=== PATIENT | male | born 1980 | race Caucasian/White ===

== ENCOUNTER → 2016-10-13 | Outpatient (CLI) | payer OTHER ==
[~2016-10-13] MED LIST: PANT20TA PO; VITA100L PO; VITA100T20 PO
--- NOTE | 2016-10-13 18:39 | REP ---
MR BRAIN WITHOUT CONTRAST: HISTORY: Cerebral cyst. COMPARISON: 05/27/2015. Several punctate areas of increased signal intensity on T2 weighted images are present in the subcortical white matter. There is no intraparenchymal hemorrhage, infarct, mass or midline shift. A 4 mm pineal cyst is present. The ventricular system is normal in appearance. There is no extracerebral collection. The visualized sinuses are clear. IMPRESSION: There are several punctate area of increased signal intensity in the subcortical white matter. This is a nonspecific finding. Signed by Miguel Ramos MD 10/16/2016 08:35 A
== END ==
LOC: M RAD 13:22
PROVIDERS: ATTEND Psychiatry & Neurology Neurology
DX: G93.0 Cerebral cysts (principal)

== ENCOUNTER 2016-10-19 13:45 | Outpatient (RCR) | payer OTHER | END 2016-10-24 | LOC: M PT 13:45 | PROVIDERS: ATTEND Physician Assistant | DX: Z51.89 Encounter for other specified aftercare (principal); M54.5 Low back pain ==

== ENCOUNTER → 2016-12-19 | Outpatient (REF) | payer SELFPAY ==
[2016-12-19 16:15] LABS: ALBUMIN 3.8 GM/DL (3.2-5.2); ALBUMIN/GLOBULIN RATIO 0.97 (1.00-1.93); ALKALINE PHOSPHATASE 96 U/L (45-117); ALT/SGPT 46 U/L (12-78); ANION GAP 10 MEQ/L (8-16); AST/SGOT 23 U/L (15-37); BILIRUBIN,TOTAL 0.3 MG/DL (0.2-1.0); BLOOD UREA NITROGEN 16 MG/DL (7-18); CALCIUM LEVEL 9.6 MG/DL (8.5-10.1); CARBON DIOXIDE LEVEL 25 MEQ/L (21-32); CHLORIDE LEVEL 104 MEQ/L (98-107); CHOLESTEROL LEVEL 221 MG/DL (<200); CREATININE FOR GFR 1.06 MG/DL (0.70-1.30); GLOMERULAR FILTRATION RATE > 60.0 (>60); GLUCOSE, FASTING 106 MG/DL (70-105); POTASSIUM SERUM 4.5 MEQ/L (3.5-5.1); SODIUM LEVEL 139 MEQ/L (136-145); TOTAL PROTEIN 7.7 GM/DL (6.4-8.2); TRIGLYCERIDES LEVEL 300 MG/DL (<150)
== END ==
LOC: M SFHCPLAZ 13:00
PROVIDERS: ATTEND Physician Assistant
DX: K21.9 Gastro-esophageal reflux disease without esophagitis (principal); E78.4 Other hyperlipidemia

== ENCOUNTER 2017-06-17 06:26 | Emergency (ER) | payer OTHER, SELFPAY ==
[~2017-06-17] VITALS: Ht 180.3 cm; Wt 103.2 kg
[2017-06-17 06:28] VITALS: BP 162/89
[2017-06-17] MEDS ORDERED: IBUPROFEN 800 MG TAB PO ONE (07:00)
[2017-06-17] MEDS ORDERED: NORCO 5/325MG TABLET (BULK FOR ED) PO ONE (07:00)
--- NOTE | 2017-06-17 13:20 | REP ---
RIGHT ANKLE: Four views of the right ankle are performed. Rounded calcification is seen along the lateral aspect of the calcaneus on one of the oblique views probably representing accessory ossicle or old fracture. There is a smaller somewhat irregular oval calcification along the lateral aspect of the cuboid bone. This could represent a small chip fracture or avulsion fracture. No other acute fracture or dislocation is seen of the visualized osseous structures. Ankle mortise is anatomic. Signed by Epi Ashley MD 06/17/2017 07:13 P
== END 2017-06-17 08:01 | disposition home or self-care (01) ==
LOC: M ED 06:26
DX: S93.401A Sprain of unspecified ligament of right ankle, initial encounter (principal); X50.1XXA Overexertion from prolonged static or awkward postures, initial encounter; Y92.099 Unspecified place in other non-institutional residence as the place of occurrence of the external cause; Y93.89 Activity, other specified; Y99.9 Unspecified external cause status; K21.9 Gastro-esophageal reflux disease without esophagitis; F17.200 Nicotine dependence, unspecified, uncomplicated; Z79.899 Other long term (current) drug therapy

== ENCOUNTER → 2017-11-20 | Outpatient (CLI) | payer OTHER | LOC: M RAD 05:51 | DX: R04.2 Hemoptysis (principal) | CPT/HCPCS: 71046 ==

== ENCOUNTER 2019-05-20 15:32 | Inpatient (IN) | payer MEDICAID, OTHER ==
[~2019-05-20] VITALS: Ht 180.3 cm; Wt 94.2 kg
[~2019-05-20 15:32] MED LIST changes: -PANT20TA PO; +PANT20TA2 PO; -VITA100T20 PO; +VITA100T51 PO
[2019-05-20] MEDS ORDERED: HALOPERIDOL 5 MG/ML VIAL (J1630) IM STA (15:37)
[2019-05-20] MEDS ORDERED: LORazepam 2 MG/ML VIAL (J2060) IM STA (15:37)
[2019-05-20] MEDS ORDERED: diphenhydrAMINE INJ 50MG/ML VIAL (J1200) IM STA (15:37)
[2019-05-20] MEDS ORDERED: diphenhydrAMINE INJ 50MG/ML VIAL (J1200) As Ordered ONE (15:38)
[2019-05-20 16:22] LABS: HEMATOCRIT 41.3 % (42.0-52.0); HEMOGLOBIN 13.9 g/dl (13.5-17.5); MEAN CORPUSCULAR HEMOGLOBIN 30.3 pg (27.0-33.0); MEAN CORPUSCULAR HGB CONC 33.7 g/dl (32.0-36.5); MEAN CORPUSCULAR VOLUME 90.2 fl (80.0-96.0); PLATELET COUNT, AUTOMATED 193 10^3/uL (150-450); RED BLOOD COUNT 4.58 10^6/uL (4.30-6.10); WHITE BLOOD COUNT 6.8 10^3/uL (4.0-10.0)
[2019-05-20 16:48] LABS: AMPHETAMINES LEVEL URINE NEGATIVE (NEGATIVE); BARBITURATES URINE NEGATIVE (NEGATIVE); BENZODIAZEPINES URINE NEGATIVE (NEGATIVE); CANNABINOIDS URINE POSITIVE (NEGATIVE); COCAINE METABOLITE URINE NEGATIVE (NEGATIVE); METHADONE URINE NEGATIVE (NEGATIVE); OPIATES URINE NEGATIVE (NEGATIVE); PHENCYCLIDINE URINE NEGATIVE (NEGATIVE)
[2019-05-20 16:51] LABS: ACETAMINOPHEN LEVEL < 2.0 UG/ML (10.0-30.0); ALBUMIN 3.7 GM/DL (3.2-5.2); ALT/SGPT 30 U/L (12-78); BILIRUBIN,DIRECT 0.2 MG/DL (0.0-0.2); BILIRUBIN,TOTAL 0.5 MG/DL (0.2-1.0); BLOOD UREA NITROGEN 12 MG/DL (7-18); CARBON DIOXIDE LEVEL 21 MEQ/L (21-32); CHLORIDE LEVEL 104 MEQ/L (98-107); CPK CREATINE PHOSPHOKINASE 303 U/L (39-308); CREATININE FOR GFR 1.26 MG/DL (0.70-1.30); ETHYL ALCOHOL (ETHANOL) < 0.003 % (0.000-0.010); GLOMERULAR FILTRATION RATE > 60.0 (>60); GLUCOSE, FASTING 96 MG/DL (70-100); POTASSIUM SERUM 3.5 MEQ/L (3.5-5.1); SODIUM LEVEL 139 MEQ/L (136-145); THYROID STIMULATING HORMONE 0.323 uIU/ML (0.358-3.740); TOTAL PROTEIN 7.4 GM/DL (6.4-8.2)
[2019-05-21] MEDS ORDERED: diphenhydrAMINE INJ 50MG/ML VIAL (J1200) As Ordered ONE (12:14)
[2019-05-21] MEDS ORDERED: diphenhydrAMINE INJ 50MG/ML VIAL (J1200) IM ONE (12:15)
[2019-05-21] MEDS ORDERED: LORazepam 2 MG/ML VIAL (J2060) IM ONE (12:15)
[2019-05-21] MEDS ORDERED: HALOPERIDOL 5 MG/ML VIAL (J1630) IM ONE (12:15)
[2019-05-21] MEDS ORDERED: LORazepam 2 MG/ML VIAL (J2060) As Ordered ONE (12:15)
[2019-05-21] MEDS ORDERED: IBUPROFEN 400 MG TAB PO PRN (14:30)
[2019-05-21] MEDS ORDERED: MOM 30ML SUSPENSION UDC PO PRN (14:30)
[2019-05-21] MEDS ORDERED: traZODone 50 MG TAB PO PRN (14:30)
[2019-05-21] MEDS: MAALOX 30 ML SUSP *UDC PO PRN (18:31)
[2019-05-21] MEDS: NICOTINE 21MG/24HR 1 EA TRANSDERMAL TD SCH (18:31)
[2019-05-22 06:47] VITALS: BP 102/53
--- NOTE | 2019-05-22 09:11 | MHHPEPDOC ---
[facility] History & Physical History and Physical DATE OF ADMISSION: May 21, 2019 at 14:20 Date of Service: 05/22/2019 Chief Complaint "I have to go" History of Present Illness Patient a 39-year-old man who recently was released from correction presents in a psychotic and disrupted state. He had been brought in to [facility] under the conditions of a pickup order issued at the request of his mother. Patient's mother reported that he had been acting bizarre since being released 10 days from correction. He was restrained in the ER due to agitation. I attempted to meet with the patient, however, he was too distorted and psychotic to carry on any meaningful conversation. The majority of the information below is extracted from the chart. On presentation, he had been noted to have no outpatient treatment and had been reporting that he needed to go because "birds". He has made multiple attempts to leave the . Review Of Systems Unable to get full review of systems due to patient's psychosis. Past Psychiatric History No history of outpatient treatment. No mental health admissions. No previous diagnoses known. On no current psychiatric medicines. Allergies Please see below. Family Psychiatric History Unknown due to patient's psychosis. Social History The patient recently left correction. The patient lives in the current areas but has left correction 10 days ago for unknown causes. He likely lives in the local area as it appears that he is follows with the [facility] office for family care. Substance Abuse History The patient denies any substance use. Toxicology on presentation indicated positive cannabinoids, no alcohol. Medical History History of back pain per chart. Mental Status Examination General: Poor hygiene Speech: Pressured Thought processes: Tangential MSK: Pacing Thought content: Bizarre and confused Abstract reasoning, and computation: Impaired Description of associations: Loose Description of abnormal or psychotic thoughts: Denies any suicidal or homicidal ideation, appears to be responding to internal stimuli. Judgment: poor Insight: poor Orientation: Alert and orientated 3 Cognition: Grossly normal Recent and remote memory: Impaired Attention span and concentration: Impaired Fund of knowledge: Poor Mood: "fine" Affect: flat with no reactivity Diagnoses Unspecified psychosis. Cannabis use disorder, unspecified. Assessment and Plan Ixemd-[id number]-old man with no history of psychosis or patient admissions presents in a psychotic state 10 days after leaving the correction. It's not clear if he has a intoxication with a synthetic cannabinoid or other agent that could cause him to become psychotic. He has flatly refused any medications. However, he appears fairly confused and psychotic and has attempted to leave multiple times. Disposition Will need at least 2 midnights or more in order to treat his psychotic symptoms. Problem List 1. Altered thoughts. 2. Substance use. Initial Treatment Plan 1. Patient was admitted on a 9.39 legal status. 2. Complete history was obtained. 3. With patients permission, family will be contacted and database will be expanded. 4. Patients medication regimen will be reviewed and changed accordingly. 5. Patient will be provided with protected environment. 6. Patient will be treated with individual, group, and milieu therapies. 7. Patient will receive supportive psych-education. 8. Discharge planning will commence immediately. 9. Outpatient follow-up treatment will be strongly recommended. 10. The initial treatment plan will focus initially on observation then starting of medication. Estimated Length Of Stay Five days. Time Spent 30 minutes with greater than 50% of time on coordination of care. Vital Signs Vital Signs Date Time Temp Pulse Resp B/P (MAP) Pulse Ox O2 Delivery O2 Flow Rate FiO2 05/22/19 06:47 98.2 68 16 102/53 (69) 05/21/19 14:52 98 05/21/19 14:00 Room Air Medications No Active Prescriptions or Reported Meds Allergies Coded Allergies: No Known Allergies (Unverified , 05/20/19) SIMA HALEY DO May 22, 2019 09:11
[2019-05-22] MEDS: NICOTINE 21MG/24HR 1 EA TRANSDERMAL TD SCH (13:29)
[2019-05-22] MEDS: MAALOX 30 ML SUSP *UDC PO PRN ×2 (14:48→21:47)
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
[2019-05-22 18:00] VITALS: BP 141/70
--- NOTE | 2019-05-22 20:34 | ECGEPIP ---
[facility] - ED Test Date: 2019-05-20 Pat Name: CARLOS EDUARDO BARROSO Department: Room: - Gender: Male Tobacco Hanger: myrna : 1980 Requested By: BASHIR Ferreira Order Number: [id number] Reading MD: Jessi Hines Measurements Intervals [place] Rate: 52 P: 42 WI: 173 QRS: 34 QRSD: 100 T: 38 QT: 422 QTc: 396 Interpretive Statements SINUS BRADYCARDIA baseline artifact may affect interpretation DECREASED RATE 12/02/14 Electronically Signed on 05-22-2019 20:34:06 EDT by Jessi Hines
[2019-05-23] MEDS: NICOTINE 21MG/24HR 1 EA TRANSDERMAL TD SCH (08:45)
[2019-05-23] MEDS ORDERED: LORazepam 2 MG TAB PO STA (11:30)
[2019-05-23] MEDS ORDERED: diphenhydrAMINE 50 MG CAP PO STA (11:30)
[2019-05-23] MEDS ORDERED: HALOPERIDOL 10 MG TAB PO STA (11:30)
--- NOTE | 2019-05-23 11:38 | MHIPNPDOC ---
[facility] Progress Note Progress Note Date of Service: 05/23/2019 History of Present Illness Patient a 39-year-old man who recently was released from shelter presents in a psychotic and disrupted state. He had been brought in to [facility] under the conditions of a pickup order issued at the request of his mother. Patient's mother reported that he had been acting bizarre since being released 10 days from shelter. He was restrained in the ER due to agitation. I atte mpted to meet with the patient, however, he was too distorted and psychotic to carry on any meaningful conversation. Interval History The patient is attempted to be met with today. However, he's highly agitated, pacing around the unit, becoming agitated, yelling and continues to be bizarre. He reports that if he eats meat loaf that it will be a bad omen of injury to his mother. He remains fairly bizarre. After attempting to meet with him, he states that "You're not a real doctor." He was told that he needs to take medication and not leave. He briefly mentions he had been on Seroquel in the past. When offered Seroquel, he stated that he wished to leave. He did need to be coded as he was going in and out of the other provider's office and in other patient's r ooms. He was placed on a one-to-one due to his sickness which could be really problematic in a volatile milieu. The patient generally had stayed up night and has been only mildly redirectable at times with continued bizarre thoughts. Review Of Systems As above Psychotherapy None on this visit. Vital Signs Reviewed. Mental Status Examination General: Poor hygiene Speech: Pressured Thought processes: Tangential MSK: Pacing Thought content: Bizarre and confused Abstract reasoning, and computation: Impaired Description of associations: Loose Description of abnormal or psychotic thoughts: Appears to be responding to internal stimuli. Judgment: poor Insight: poor Orientation: Alert and orientated 3 Cognition: Grossly normal Recent and remote memory: Impaired Attention span and concentration: Impaired Fund of knowledge: Poor Mood: "fine" Affect: flat with no reactivity Diagnoses Unspecified psychosis. Cannabis use disorder, unspecified. Assessment and Plan The patient would placed on Zyprexa 5 mg BID as he is fairly psychotic and will need to be stabilized quickly. One-to-one sitter as the patient is intrusive and could put himself at risk if he were to encounter a violent patient. Disposition The patient will need a further inpatient admission due to his severe psychosis and inability to care for himself. Time Spent 15 minutes [id number]. Sunday Vital Signs Vital Signs Date Time Temp Pulse Resp B/P (MAP) Pulse Ox O2 Delivery O2 Flow Rate FiO2 05/22/19 18:00 98.8 59 16 141/70 (93) 05/22/19 10:34 Room Air 05/21/19 14:52 98 Current Medications Current Medications Medications (Trade) Dose Ordered Sig/Trini Route PRN Reason Start Time Stop Time Status Last Admin Dose Admin Al Hydrox/Mg Hydrox/Simethicone (Mylanta) 30 ml Q4HP PRN PO HEARTBURN/INDIGESTION 05/21/19 14:30 05/22/19 21:47 Diphenhydramine HCl (Benadryl) 50 mg STAT STAT IM 05/20/19 15:37 05/20/19 15:39 DC 05/20/19 15:46 Diphenhydramine HCl (Benadryl) 50 mg STAT STAT PO 05/23/19 11:30 05/23/19 11:34 DC 05/23/19 11:36 Haloperidol (Haldol) 5 mg STAT STAT IM 05/20/19 15:37 05/20/19 15:39 DC 05/20/19 15:46 Haloperidol (Haldol) 10 mg STAT STAT PO 05/23/19 11:30 05/23/19 11:34 DC 05/23/19 11:36 Ibuprofen (Advil) 400 mg Q6HP PRN PO PAIN 05/21/19 14:30 Lorazepam (Ativan) 0.5 mg Q6HP PRN PO ANXIETY/AGITATION 05/22/19 12:30 Lorazepam (Ativan) 2 mg STAT STAT IM 05/20/19 15:37 05/20/19 15:39 DC 05/20/19 15:46 Lorazepam (Ativan) 2 mg STAT STAT PO 05/23/19 11:30 05/23/19 11:34 DC 05/23/19 11:36 Magnesium Hydroxide (Milk Of Magnesia) 30 ml DAILYPRN PRN PO CONSTIPATION 05/21/19 14:30 Nicotine (Nicoderm Cq 21mg) 1 patch DAILY TD 05/21/19 09:00 Olanzapine (ZyPREXA) 5 mg QHS PO 05/23/19 21:00 Trazodone HCl (Desyrel) 50 mg QHSP PRN PO INSOMNIA 05/21/19 14:30 Allergies Coded Allergies: No Known Allergies (Unverified , 05/20/19) SIMA HALEY DO May 23, 2019 11:38
[2019-05-23 12:20] VITALS: BP 138/74
[2019-05-23 13:03] VITALS: BP 134/70
[2019-05-23 13:30] VITALS: BP 128/76
[2019-05-23] MEDS: LORazepam 0.5 MG TAB PO PRN ×3 (13:50→18:35)
[2019-05-23] MEDS: MAALOX 30 ML SUSP *UDC PO PRN (13:50)
[2019-05-23] MEDS: OMEPRAZOLE 20 MG CAP PO SCH (13:58)
[2019-05-23 14:00] VITALS: BP 140/74
[2019-05-23] MEDS ORDERED: chlorproMAZINE 25 MG TAB (Q0161) PO ONE (18:45)
[2019-05-23] MEDS ORDERED: diphenhydrAMINE 50 MG CAP PO ONE (18:45)
[2019-05-23] MEDS ORDERED: LORazepam 1 MG TAB PO ONE (18:45)
[2019-05-23] MEDS ORDERED: OLANZapine 5 MG TAB PO SCH ×2 (21:00)
[2019-05-24 07:22] VITALS: BP 110/53
--- NOTE | 2019-05-24 09:09 | MHIPNPDOC ---
[facility] Progress Note Progress Note DATE OF SERVICE: 05/24/19 HISTORY: Patient a 39-year-old man who recently was released from alf presents in a psychotic and disrupted state. He had been brought in to [facility] under the conditions of a pickup order issued at the request of his mother. Patient's mother reported that he had been acting bizarre since being released 10 days from alf. He was restrained in the ER due to agitation. I attempted to meet with the patient, however, he was too distorted and psychotic to carry on any meaningful conversation. Interval History Pt continues to be psychotic, paranoid, suspicious, internally preoccupied, bizarre, agitated, and frequently attempts to elope. Called yesterday for pt becoming agitated at his mother had left after visiting hours requiring security to be called. Called by nursing regarding pt agitation and order thorazine 100mg, ativan 2mg, benadryl 100mg that the pt took PO and called down greatly afterward falling asleep and is currently asleep. Pt left sleeping as when pt awake is frequently agitated and attempting to elope. Review Of Systems As above Psychotherapy None on this visit. Vital Signs Reviewed. Mental Status Examination: Unable to assess due to currently sleeping and left sleeping as when pt awake is frequently agitated and attempting to elope. [place] [facility] [place] General: Poor hygiene Speech: Pressured Thought processes: Tangential MSK: Pacing Thought content: Bizarre and confused Abstract reasoning, and computation: Impaired Description of associations: Loose Description of abnormal or psychotic thoughts: Appears to be responding to internal stimuli. Judgment: poor Insight: poor Orientation: Alert and orientated 3 Cognition: Grossly normal Recent and remote memory: Impaired Attention span and concentration: Impaired Fund of knowledge: Poor Mood: "fine" Affect: flat with no reactivity Diagnoses Unspecified psychosis. Cannabis use disorder, unspecified. Assessment and Plan The patient would placed on Zyprexa 5 mg BID as he is fairly psychotic and will need to be stabilized quickly. One-to-one sitter as the patient is intrusive and could put himself at risk if he were to encounter a violent patient. Will add prn throzine 50mg q4hr prn anxiety/agitation and prn ativan 2mg q4hr prn anxiety/agitation as very effective and tolerated well when given to pt yeste rday to calm down when he became agitated on the unit. Will also increase zyprexa to 10mg TID for continued psychosis and agitation. Disposition The patient will need a further inpatient admission due to his severe psychosis and inability to care for himself. Time Spent 15 minutes [id number]. Vital Signs Vital Signs Date Time Temp Pulse Resp B/P (MAP) Pulse Ox O2 Delivery O2 Flow Rate FiO2 05/24/19 07:58 Room Air 05/24/19 07:22 97.7 61 14 110/53 (72) 05/23/19 13:03 97 Current Medications Current Medications Medications (Trade) Dose Ordered Sig/Trini Route PRN Reason Start Time Stop Time Status Last Admin Dose Admin Al Hydrox/Mg Hydrox/Simethicone (Mylanta) 30 ml Q4HP PRN PO HEARTBURN/INDIGESTION 05/21/19 14:30 05/22/19 21:47 Diphenhydramine HCl (Benadryl) 50 mg STAT STAT IM 05/20/19 15:37 05/20/19 15:39 DC 05/20/19 15:46 Diphenhydramine HCl (Benadryl) 50 mg STAT STAT PO 05/23/19 11:30 05/23/19 11:34 DC 05/23/19 11:36 Haloperidol (Haldol) 5 mg STAT STAT IM 05/20/19 15:37 05/20/19 15:39 DC 05/20/19 15:46 Haloperidol (Haldol) 10 mg STAT STAT PO 05/23/19 11:30 05/23/19 11:34 DC 05/23/19 11:36 Ibuprofen (Advil) 400 mg Q6HP PRN PO PAIN 05/21/19 14:30 Lorazepam (Ativan) 0.5 mg Q6HP PRN PO ANXIETY/AGITATION 05/22/19 12:30 05/23/19 18:35 Lorazepam (Ativan) 2 mg STAT STAT IM 05/20/19 15:37 05/20/19 15:39 DC 05/20/19 15:46 Lorazepam (Ativan) 2 mg STAT STAT PO 05/23/19 11:30 05/23/19 11:34 DC 05/23/19 11:36 Magnesium Hydroxide (Milk Of Magnesia) 30 ml DAILYPRN PRN PO CONSTIPATION 05/21/19 14:30 Nicotine (Nicoderm Cq 21mg) 1 patch DAILY TD 05/21/19 09:00 Olanzapine (ZyPREXA) 5 mg BID PO 05/23/19 21:00 Olanzapine (ZyPREXA) 5 mg QHS PO 05/23/19 21:00 05/23/19 21:00 DC Omeprazole (PriLOSEC) 20 mg DAILY PO 05/23/19 09:00 05/23/19 13:58 Trazodone HCl (Desyrel) 50 mg QHSP PRN PO INSOMNIA 05/21/19 14:30 Allergies Coded Allergies: No Known Allergies (Unverified , 05/20/19) ADONIS KAUFMAN DO May 24, 2019 9:09 am
[2019-05-24] MEDS: OMEPRAZOLE 20 MG CAP PO SCH (10:00)
[2019-05-24] MEDS: LORazepam 2 MG TAB PO PRN ×2 (10:00→18:33)
[2019-05-24] MEDS: OLANZapine 10 MG TAB PO SCH ×3 (10:03→21:00)
[2019-05-24] MEDS: NICOTINE 21MG/24HR 1 EA TRANSDERMAL TD SCH (10:03)
[2019-05-24] MEDS ORDERED: LORazepam 2 MG TAB PO STA (13:25)
[2019-05-24] MEDS: chlorproMAZINE 25 MG TAB (Q0161) PO PRN (18:33)
[2019-05-25 06:23] VITALS: BP 109/66
[2019-05-25] MEDS: NICOTINE 21MG/24HR 1 EA TRANSDERMAL TD SCH (09:00)
[2019-05-25] MEDS: OLANZapine 10 MG TAB PO SCH ×3 (09:00→21:00)
[2019-05-25] MEDS: OMEPRAZOLE 20 MG CAP PO SCH (09:48)
[2019-05-25] MEDS: LORazepam 2 MG TAB PO PRN (09:50)
[2019-05-25] MEDS: chlorproMAZINE 25 MG TAB (Q0161) PO PRN (15:39)
[2019-05-25 17:45] VITALS: BP 113/55
[2019-05-26] MEDS: NICOTINE 21MG/24HR 1 EA TRANSDERMAL TD SCH (09:00)
[2019-05-26] MEDS: OLANZapine 10 MG TAB PO SCH ×3 (09:16→21:32)
[2019-05-26] MEDS: OMEPRAZOLE 20 MG CAP PO SCH (09:16)
--- NOTE | 2019-05-26 15:13 | MHIPNPDOC ---
[facility] Progress Note Progress Note Date of Service: 05/26/2019 History of Present Illness Patient a 39-year-old man who recently was released from long-term presents in a psychotic and disrupted state. He had been brought in to [facility] under the conditions of a pickup order issued at the request of his mother. Patient's mother reported that he had been acting bizarre since being released 10 days from long-term. He was restrained in the ER due to agitation. I atte mpted to meet with the patient, however, he was too distorted and psychotic to carry on any meaningful conversation. Interval History The patient is met with multiple times today. He reports that he wishes to leave. He has had less behavioral problems. He did need sedation yesterday but has been taking the medication more consistently after being taken off the one-to-one sitter as he states that it was making more agitated. He has been in much better behavioral control. He is becoming less bizarre, more able to attend to his needs and has not been becoming fairly angry. He reports that he wants to go home, however, he was told he would need to have 24 hours of no agitation, be taking his medications consistently and be able to give the treatment team a release to speak to his mother or another individual in order to secure a safe discharge. His mother had seen him for visitation the previous day, but she had been very scolding of him for not taking his medication what is only agitate him and she was asked to leave. Review Of Systems Remain somewhat paranoid, but less bizarre today. Psychotherapy None on this visit. Vital Signs Reviewed. Mental Status Examination General: Improving. Speech: Less pressured. Thought processes: Circumstantial. MSK: Less pacing. Thought content: Less bizarre. Abstract reasoning, and computation: Improved. Description of associations: Improved. Description of abnormal or psychotic thoughts: Denies suicidal or homicidal ideation. Does not appear to be responding to internal stimuli. Judgment: Improving. Insight: Improving. Orientation: Alert and orientated 3 Cognition: Grossly normal Recent and remote memory: Improving. Attention span and concentration: Improving. Fund of knowledge: Improving. Mood: "fine" Affect: More reactive. Diagnoses Unspecified psychosis. Cannabis use disorder, unspecified. Assessment and Plan Continue Zyprexa 10 mg TID. Improvements being made, potential discharge if patient is able to coordinate and continuing to be in behavioral control as then he would not meet involuntary criteria. Disposition Will need further inpatient admission in order to plan for a safe discharge and to monitor the medications. Time Spent 20 minutes [id number]. Sunday Vital Signs Vital Signs Date Time Temp Pulse Resp B/P (MAP) Pulse Ox O2 Delivery O2 Flow Rate FiO2 05/25/19 17:45 98.8 72 16 113/55 (74) 05/25/19 10:02 Room Air 05/23/19 13:03 97 Current Medications Current Medications Medications (Trade) Dose Ordered Sig/Trini Route PRN Reason Start Time Stop Time Status Last Admin Dose Admin Al Hydrox/Mg Hydrox/Simethicone (Mylanta) 30 ml Q4HP PRN PO HEARTBURN/INDIGESTION 05/21/19 14:30 05/22/19 21:47 Chlorpromazine HCl (Thorazine) 50 mg QIDP PRN PO AGITATION 05/24/19 09:15 05/25/19 15:39 Diphenhydramine HCl (Benadryl) 50 mg STAT STAT IM 05/20/19 15:37 05/20/19 15:39 DC 05/20/19 15:46 Diphenhydramine HCl (Benadryl) 50 mg STAT STAT PO 05/23/19 11:30 05/23/19 11:34 DC 05/23/19 11:36 Haloperidol (Haldol) 5 mg STAT STAT IM 05/20/19 15:37 05/20/19 15:39 DC 05/20/19 15:46 Haloperidol (Haldol) 10 mg STAT STAT PO 05/23/19 11:30 05/23/19 11:34 DC 05/23/19 11:36 Ibuprofen (Advil) 400 mg Q6HP PRN PO PAIN 05/21/19 14:30 Lorazepam (Ativan) 0.5 mg Q6HP PRN PO ANXIETY/AGITATION 05/22/19 12:30 05/24/19 09:08 DC 05/23/19 18:35 Lorazepam (Ativan) 2 mg Q4HP PRN PO ANXIETY/AGITATION 05/24/19 09:15 05/25/19 09:50 Lorazepam (Ativan) 2 mg STAT STAT IM 05/20/19 15:37 05/20/19 15:39 DC 05/20/19 15:46 Lorazepam (Ativan) 2 mg STAT STAT PO 05/23/19 11:30 05/23/19 11:34 DC 05/23/19 11:36 Lorazepam (Ativan) 2 mg STAT STAT PO 05/24/19 13:25 05/24/19 13:27 DC 05/24/19 13:31 Magnesium Hydroxide (Milk Of Magnesia) 30 ml DAILYPRN PRN PO CONSTIPATION 05/21/19 14:30 Nicotine (Nicoderm Cq 21mg) 1 patch DAILY TD 05/21/19 09:00 Olanzapine (ZyPREXA) 5 mg BID PO 05/23/19 21:00 05/24/19 09:08 DC Olanzapine (ZyPREXA) 5 mg QHS PO 05/23/19 21:00 05/23/19 21:00 DC Olanzapine (ZyPREXA) 10 mg TID PO 05/24/19 09:00 05/26/19 09:16 Omeprazole (PriLOSEC) 20 mg DAILY PO 05/23/19 09:00 05/26/19 09:16 Trazodone HCl (Desyrel) 50 mg QHSP PRN PO INSOMNIA 05/21/19 14:30 Allergies Coded Allergies: No Known Allergies (Unverified , 05/20/19) SIMA HALEY DO May 26, 2019 15:13
[2019-05-26] MEDS: chlorproMAZINE 25 MG TAB (Q0161) PO PRN ×2 (15:55→23:21)
[2019-05-26 17:04] VITALS: BP 98/56
[2019-05-26] MEDS: LORazepam 2 MG TAB PO PRN (18:14)
[2019-05-27] MEDS: NICOTINE 21MG/24HR 1 EA TRANSDERMAL TD SCH (09:00)
[2019-05-27] MEDS: OLANZapine 10 MG TAB PO SCH (09:04)
[2019-05-27] MEDS: OMEPRAZOLE 20 MG CAP PO SCH (09:04)
[2019-05-27] MEDS ORDERED: OLAN10TA2 PO (11:29)
[2019-05-27] MEDS ORDERED: NICO21PAT TD (11:29)
--- NOTE | 2019-05-27 11:39 | MHDSPDOC ---
[facility] Discharge Summary Discharge Summary DATE OF ADMISSION: May 21, 2019 at 14:20 DATE OF DISCHARGE: 05/27/19 Date of Service: 05/27/2019 Diagnoses Unspecified psychosis. Cannabis use disorder, unspecified. Unspecified major neurocognitive disorder. History of Present Illness Patient a 39-year-old man who recently was released from custodial presents in a psychotic and disrupted state. He had been brought in to [facility] under the conditions of a pickup order issued at the request of his mother. Patient's mother reported that he had been acting bizarre since being released 10 days from custodial. He was restrained in the ER due to agitation. I attempted to meet with the patient, however, he was too distorted and psychotic to carry on any meaningful conversation. Consultants Involved Hospitalist/PCP screening Treatment and Progress On The Unit The patient was admitted to the inpatient unit where he was noted to be fairly psychotic, unable to care for himself and unable to continue a conversation. He was observed for several days where he became agitated multiple times requiring IM's and code 25's to be called. Subsequently, he then began after trusting one of the staff members to take medication where he cleared up significantly well. He began to become less bizarre and more able to cooperate this discharge. He subsequently became much less threatening and was able to remain in behavioral control for 24 hours. He did sign a release for his mother who reports that the patient after starting the medication of olanzapine 10 mg twice daily did well. He was increased to 10 mg TID, but had not been tried on that full dose prior to discharge and it did exceed the FDA maximum, thus he was placed on 20 mg BID of what he had done fairly well. He reported a positive effect and wanted to leave. For the last 24 hours of admission, he did not meet involuntary criteria as he was no longer threatening to himself or others and was able to attend to his needs, although in the most basic sense, he was able to attend to cooperating with this discharge and being able to feed and bathe himself. Collateral infor matmima from his mother reveals that he was at his baseline at discharge. He is noted to have a TBI reportedly in the past and has very low functioning at baseline and he has significant problems with impulsivity. He was able to consent to outpatient treatment and cooperate well enough that he did not meet full involuntary criteria and declined further involuntary admission, thus he was discharged in good rosy. Prior authorization completed for his olanzapine of which was approved. The patient was able to remain in behavioral control for at least 24 hours and cooperates sufficiently well despite the occasional odd comment. Discharge Assessment This 39-year-old man with psychosis of unknown origin, he has no history, however, his positive cannabinoid test likely indicates a substance induced phenomenon such as synthetic marijuana. The patient was really guarded about this and declined to talk at length about his particular cannabis use, however, the sudden resolution with relatively straightforward dosing of olanzapine is fairly telling. The patient by his mother's report was at his baseline as he does have significant neurocognitive problems from a TBI and is not able to inhibit himself from various yelling episodes, but had become non-threatening for 24 hours prior to his discharge and thus was no longer able to be held against his will. He was able to attend to his needs and the most basic sense, but declined a further voluntary admission, thus was discharged in good rosy. Mental Status Examination General: Well dressed with good hygiene Speech: Fluid Thought processes: More linear MSK: Smooth and coordinated gait, no signs of tremors or involuntary orofacial movements Thought content: Focused on discharge Abstract reasoning, and computation: Improved Description of associations: Improved Description of abnormal or psychotic thoughts: Denies any suicidal or homicidal ideation. Denies any auditory or visual hallucinations. Does not appear to be responding to internal stimuli. Does not appear to be endorsing any bizarre or paranoid ideation. Judgment: Improved Insight: Improved Orientation: Alert and orientated 3 Cognition: Mild chronic slowing Recent and remote memory: Intact Attention span and concentration: Intact Fund of knowledge: Chronically impaired Mood: "Fine" Affect: More reactive than previous days. Follow Up The social work team worked during the predischarge meeting in order to evaluate for further issues of lethality address them fully before discharge. They worked on safety planning with the patient's family members in order to ensure that the patient will have a safe and effective discharge. Time Spent The amount of time spent in the coordination of care for this patient was approximately 30 minutes. Sunday Vital Signs/I&Os Vital Signs Date Time Temp Pulse Resp B/P (MAP) Pulse Ox O2 Delivery O2 Flow Rate FiO2 05/26/19 17:04 98.6 64 15 98/56 (70) 05/25/19 10:02 Room Air 05/23/19 13:03 97 Medications Scheduled Nicotine (Nicotine Patch) 21 Mg Patch.td24, 1 PATCH TD DAILY for tobacco for 30 Days, #30 Olanzapine (Olanzapine) 20 Mg Tablet, 0.5 TAB PO BID for thought for 7 Days, #7 Omeprazole Magnesium (Prilosec Otc) 20 Mg Tablet.dr, 1 TAB PO DAILY for GERD for 30 Days, #30 Allergies Coded Allergies: No Known Allergies (Unverified , 05/20/19) SIMA HALEY DO May 27, 2019 11:39
[2019-05-27] MEDS ORDERED: OLAN20TA14 PO (14:13)
[2019-05-27] MEDS ORDERED: PRIL20TA2 PO (14:38)
== END 2019-05-27 12:50 | disposition home or self-care (01) | DRG 751 ==
LOC: M ED 15:32 → M PSY 05-21 14:20
PROVIDERS: ADMIT Psychiatry & Neurology Addiction Medicine; ATTEND Psychiatry & Neurology Addiction Medicine
DX: F29 Unspecified psychosis not due to a substance or known physiological condition (principal); F01.51 Vascular dementia, unspecified severity, with behavioral disturbance; F12.90 Cannabis use, unspecified, uncomplicated; K21.9 Gastro-esophageal reflux disease without esophagitis; F17.200 Nicotine dependence, unspecified, uncomplicated; M54.5 Low back pain; E78.5 Hyperlipidemia, unspecified; E66.9 Obesity, unspecified

== ENCOUNTER 2020-07-06 11:23 | Emergency (ER) | payer MEDICAID ==
[~2020-07-06] VITALS: Ht 177.8 cm; Wt 108.9 kg
[~2020-07-06 11:23] MED LIST changes: +NICO21PAT TD; +OLAN10TA2 PO; +OLAN20TA14 PO; -PANT20TA2 PO; +PANT20TA6 PO; +PRIL20TA2 PO
[2020-07-06 11:24] VITALS: BP 162/91
[2020-07-06] MEDS ORDERED: PANT40TA29 PO (11:50)
[2020-07-06] MEDS ORDERED: IBUP80TA PO (12:37)
== END 2020-07-06 12:44 | disposition home or self-care (01) ==
LOC: M ED 11:23
DX: M79.631 Pain in right forearm (principal); K21.9 Gastro-esophageal reflux disease without esophagitis; M54.5 Low back pain; G47.30 Sleep apnea, unspecified; F41.9 Anxiety disorder, unspecified; F20.9 Schizophrenia, unspecified; F17.200 Nicotine dependence, unspecified, uncomplicated

== ENCOUNTER 2022-10-06 16:27 | Inpatient (IN) | payer MEDICAID, OTHER ==
[~2022-10-06] VITALS: Ht 177.8 cm; Wt 127.4 kg
[~2022-10-06 16:27] MED LIST changes: +IBUP80TA PO; -OLAN10TA2 PO; +OLAN1TAB20 PO; +PANT40TA29 PO
[2022-10-06] MEDS ORDERED: OLANZapine ORAL DISINTEGRATING TAB 5MG PO ONE (17:30)
[2022-10-06 17:50] LABS: HEMATOCRIT 44.9 % (42.0-52.0); HEMOGLOBIN 14.7 g/dl (13.5-17.5); MEAN CORPUSCULAR HEMOGLOBIN 29.4 pg (27.0-33.0); MEAN CORPUSCULAR HGB CONC 32.7 g/dl (32.0-36.5); MEAN CORPUSCULAR VOLUME 89.8 fl (80.0-96.0); PLATELET COUNT, AUTOMATED 252 10^3/uL (150-450)
[2022-10-06 18:16] LABS: ETHYL ALCOHOL (ETHANOL) 0.003 % (0.000-0.010)
[2022-10-06 18:17] LABS: ACETAMINOPHEN LEVEL < 2.0 UG/ML (10.0-20.0); BILIRUBIN,DIRECT < 0.1 MG/DL (<0.4)
[2022-10-06 18:18] LABS: SALICYLATE LEVEL < 3.0 MG/DL (<30)
[2022-10-06 18:20] LABS: THYROID STIMULATING HORMONE 1.721 uIU/ML (0.55-4.78)
[2022-10-06 18:23] LABS: ALBUMIN 3.7 G/DL (3.2-5.2); ALKALINE PHOSPHATASE 114 U/L (46-116); ALT/SGPT 28 U/L (7.0-40); AST/SGOT 17 U/L (<34); BILIRUBIN,TOTAL 0.2 MG/DL (0.3-1.2); BLOOD UREA NITROGEN 9 MG/DL (9-23); CALCIUM LEVEL 9.2 MG/DL (8.5-10.1); CARBON DIOXIDE LEVEL 24 MMOL/L (20-31); CHLORIDE LEVEL 106 MMOL/L (98-107); CREATININE FOR GFR 0.89 MG/DL (0.70-1.30); GLOMERULAR FILTRATION RATE > 60.0 (>60); GLUCOSE, FASTING 89 MG/DL (60-100); POTASSIUM SERUM 3.8 MMOL/L (3.5-5.1); SODIUM LEVEL 139 MMOL/L (136-145); TOTAL PROTEIN 7.3 G/DL (5.7-8.2)
[2022-10-06] MEDS ORDERED: LORazepam 2 MG/ML VIAL IM STA (19:25)
[2022-10-06] MEDS ORDERED: HALOPERIDOL 5MG/ML 1ML VIAL IM ONE (19:25)
[2022-10-06] MEDS ORDERED: diphenhydrAMINE 50MG/ML VIAL IM ONE (19:25)
[2022-10-06 19:43] LABS: AMPHETAMINES LEVEL URINE NEGATIVE (NEGATIVE); BARBITURATES URINE NEGATIVE (NEGATIVE); BENZODIAZEPINES URINE NEGATIVE (NEGATIVE); COCAINE METABOLITE URINE NEGATIVE (NEGATIVE); METHADONE URINE NEGATIVE (NEGATIVE); OPIATES URINE NEGATIVE (NEGATIVE)
[2022-10-06 19:44] LABS: CANNABINOIDS URINE NEGATIVE (NEGATIVE); PHENCYCLIDINE URINE NEGATIVE (NEGATIVE)
[2022-10-06] MEDS ORDERED: CALCIUM CARBONATE 500 MG CHEW U/D PO ONE (19:55)
[2022-10-06] MEDS ORDERED: traZODone 50 MG TAB PO PRN (23:10)
[2022-10-06] MEDS ORDERED: ACETAMINOPHEN TAB 650MG DOSE (2X325MG) PO PRN (23:10)
[2022-10-06] MEDS ORDERED: MAALOX 30 ML SUSP *UDC PO PRN (23:10)
[2022-10-06] MEDS ORDERED: MOM 30ML SUSPENSION UDC PO PRN (23:10)
[2022-10-06] MEDS ORDERED: OLANZapine ORAL DISINTEGRATING TAB 5MG PO PRN ×2 (23:10→23:35)
[2022-10-07] MEDS ORDERED: HOME MED LIST COMPLETE! XX SCH (05:10)
[2022-10-07] MEDS ORDERED: NICOTINE 21MG/24HR 1 EA TRANSDERMAL TD PRN (11:55)
[2022-10-07 17:43] VITALS: BP 129/79
[2022-10-07] MEDS ORDERED: OLANZapine 5 MG TAB PO SCH (21:00)
[2022-10-07] MEDS ORDERED: OLANZapine 10 MG TAB PO SCH (21:00)
[2022-10-08 06:44] VITALS: BP 125/73
[2022-10-08] MEDS: DOXYCYCLINE HYCLATE 100MG TABLET PO SCH ×2 (09:21→21:17)
[2022-10-08] MEDS: PANTOPRAZOLE 40MG TAB (PROTONIX) PO SCH (09:21)
[2022-10-08 10:30] LABS: HEMOGLOBIN A1c 5.4 % (4.0-6.0)
[2022-10-08 10:43] LABS: CHOLESTEROL RISK RATIO 7.55 (<5); HDL CHOLESTEROL 28.6 MG/DL (>40)
[2022-10-08 17:49] VITALS: BP 129/62
[2022-10-08] MEDS: OLANZapine 10 MG TAB PO SCH (21:17)
[2022-10-09 06:17] VITALS: BP 137/96
[2022-10-09] MEDS: PANTOPRAZOLE 40MG TAB (PROTONIX) PO SCH (09:31)
[2022-10-09] MEDS: DOXYCYCLINE HYCLATE 100MG TABLET PO SCH ×2 (09:31→20:47)
[2022-10-09 17:41] VITALS: BP 126/65
[2022-10-09] MEDS: OLANZapine 10 MG TAB PO SCH (20:47)
[2022-10-10 06:32] VITALS: BP 117/57
[2022-10-10] MEDS: DOXYCYCLINE HYCLATE 100MG TABLET PO SCH ×2 (08:48→20:34)
[2022-10-10] MEDS: PANTOPRAZOLE 40MG TAB (PROTONIX) PO SCH (08:48)
[2022-10-10 16:55] VITALS: BP 131/66
[2022-10-10] MEDS: OLANZapine 10 MG TAB PO SCH (20:35)
[2022-10-11 06:41] VITALS: BP 137/67
[2022-10-11] MEDS: DOXYCYCLINE HYCLATE 100MG TABLET PO SCH ×2 (09:18→20:06)
[2022-10-11] MEDS: PANTOPRAZOLE 40MG TAB (PROTONIX) PO SCH (09:18)
[2022-10-11] MEDS ORDERED: BENZTROPINE 1 MG TAB PO PRN (10:40)
[2022-10-11 16:11] VITALS: BP 131/60
[2022-10-11] MEDS ORDERED: OLANZapine 10 MG TAB PO SCH (21:00)
[2022-10-12 06:32] VITALS: BP 129/60
[2022-10-12] MEDS: DOXYCYCLINE HYCLATE 100MG TABLET PO SCH (08:58)
[2022-10-12] MEDS: PANTOPRAZOLE 40MG TAB (PROTONIX) PO SCH (08:58)
[2022-10-12] MEDS ORDERED: BENZTROPINE 1 MG TAB PO PRN (11:30)
[2022-10-12] MEDS ORDERED: HALO10AM IM (11:41)
[2022-10-12] MEDS ORDERED: OLAN1TAB20 PO (11:41)
[2022-10-12] MEDS ORDERED: PANT40TA29 PO (11:41)
[2022-10-12] MEDS ORDERED: HALO5TAB33 PO (11:41)
[2022-10-12] MEDS ORDERED: DOXY100T PO (11:41)
[2022-10-12] MEDS ORDERED: BENZ-52 PO (11:41)
[2022-10-12] MEDS ORDERED: NICO21PAT TD (11:41)
[2022-10-12] MEDS ORDERED: HALOPERIDOL DECANOATE 100 MG/ML 1ML VIAL IM ONE (12:30)
== END 2022-10-12 13:39 | disposition home or self-care (01) | DRG 750 ==
LOC: M ED 17:30 → M ED INP 23:08 → EEVIPCON 23:08 → M PSY 10-07 01:20
PROVIDERS: ADMIT Student in an Organized Health Care Education/Training Program; ATTEND Student in an Organized Health Care Education/Training Program
DX: F25.0 Schizoaffective disorder, bipolar type (principal); E66.01 Morbid (severe) obesity due to excess calories; F22 Delusional disorders; L02.421 Furuncle of right axilla; F17.210 Nicotine dependence, cigarettes, uncomplicated